=== PATIENT | female | born 1960 | race Caucasian/White ===

== ENCOUNTER 2017-10-07 17:00 | Inpatient (IN) | payer MEDICARE, OTHER ==
[2017-10-07 17:33] LABS: ADD MAN DIFF? NO
[2017-10-07 17:40] LABS: ABNORMAL IP MESSAGE 1; BASOPHIL # 0.1 10^3/ul (0.0-0.1); BASOPHILS % 0.8 % (0.0-2.0); EOSINOPHILS # 0.2 10^3/ul (0.0-0.5); HEMATOCRIT 35.8 % (37.0-47.0); HEMOGLOBIN 11.7 g/dl (12.0-16.0); LYMPHOCYTES # 1.6 10^3/ul (0.8-2.9); LYMPHOCYTES % 20.3 % (15.0-51.0); MEAN CORPUSCULAR HEMOGLOBIN 33.4 pg (29.0-33.0); MEAN CORPUSCULAR HGB CONC 32.7 g/dl (32.0-37.0); MEAN CORPUSCULAR VOLUME 102.3 fl (82.0-101.0); MEAN PLATELET VOLUME 13.2 fl (7.4-10.4); MONOCYTE # 0.8 10^3/ul (0.3-0.9); MONOCYTES % 10.1 % (0.0-11.0); NEUTROPHIL # 5.2 10^3/ul (1.6-7.5); NEUTROPHILS % 65.4 % (39.0-77.0); PLATELET COUNT 182 10^3/UL (140-415); POSITIVE DIFF @See below; RED CELL DISTRIBUTION WIDTH 14.6 % (11.5-14.5)
[2017-10-07 17:40] LABS: WHITE BLOOD COUNT 7.9 10^3/ul (4.8-10.8)
[2017-10-07 17:58] LABS: INR 0.91; PROTIME 12.3 Sec (11.9-14.9)
[2017-10-07] MEDS: ASPIRIN 81 MG TAB PO (18:00)
[2017-10-07 18:01] LABS: ANION GAP 21 (8-16); BLOOD UREA NITROGEN 40 mg/dl (7-20); CARBON DIOXIDE 29 mmol/L (21-31); CHLORIDE 102 mmol/L (97-110); CREATINE KINASE 89 IU/L (23-200); GLUCOSE 158 mg/dl (70-220); POTASSIUM 4.6 mmol/L (3.5-5.1); SODIUM 147 mmol/L (135-144)
[2017-10-07 18:18] LABS: CK INDEX 0.9; CK-MB 0.77 ng/ml (0.0-2.4)
[2017-10-07 18:21] LABS: TROPONIN-I 0.313 ng/ml (0.00-0.12)
[2017-10-07] MEDS ORDERED: ACETAMINOPHEN 325 MG TAB PO (19:30)
[2017-10-07] MEDS ORDERED: ONDANSETRON 4 MG INJ IV (19:30)
[2017-10-07 19:53] LABS: ANISOCYTOSIS 1+ (0-0); EOSINOPHILS % (M) 3 % (0-7); LYMPHOCYTES #M 1.7 10^3/ul (0.8-2.9); LYMPHOCYTES % (M) 22 % (15-51); MONOCYTE #M 0.4 10^3/ul (0.3-0.9); MONOCYTES % (M) 6 % (0-11); PLATELET MORPHOLOGY COMMENT @See below; SEGMENTED NEUTROPHILS (M) % 69 % (39-77); SMUDGE%M 4 % (0-0)
[2017-10-08] MEDS: hydrALAzine 20 MG INJ IV ×3 (00:05→00:25)
[2017-10-08] MEDS: hydrALAzine (1 MG/ML) IV SYG IV (00:16)
[2017-10-08] MEDS ORDERED: ONDANSETRON 4 MG INJ IV (02:00)
[2017-10-08] MEDS ORDERED: NACL 0.9% 3 ML SYG IV (02:00)
[2017-10-08] MEDS ORDERED: NITROGLYCERIN (SL) 0.4 MG TAB SL (02:00)
[2017-10-08 05:34] LABS: CK-MB 0.79 ng/ml (0.0-2.4)
[2017-10-08 05:37] LABS: TROPONIN-I 0.254 ng/ml (0.00-0.12)
[2017-10-08 07:58] LABS: ADD MAN DIFF? NO
[2017-10-08 08:02] LABS: WHITE BLOOD COUNT 7.9 10^3/ul (4.8-10.8)
[2017-10-08 08:02] LABS: ABNORMAL IP MESSAGE 1; BASOPHIL # 0.1 10^3/ul (0.0-0.1); BASOPHILS % 0.8 % (0.0-2.0); EOSINOPHILS # 0.3 10^3/ul (0.0-0.5); EOSINOPHILS % 3.8 % (0.0-7.0); HEMATOCRIT 33.8 % (37.0-47.0); HEMOGLOBIN 10.8 g/dl (12.0-16.0); LYMPHOCYTES # 1.9 10^3/ul (0.8-2.9); LYMPHOCYTES % 23.6 % (15.0-51.0); MEAN CORPUSCULAR HEMOGLOBIN 32.5 pg (29.0-33.0); MEAN CORPUSCULAR VOLUME 101.8 fl (82.0-101.0); MEAN PLATELET VOLUME 13.6 fl (7.4-10.4); MONOCYTE # 0.9 10^3/ul (0.3-0.9); MONOCYTES % 11.9 % (0.0-11.0); NEUTROPHIL # 4.7 10^3/ul (1.6-7.5); NEUTROPHILS % 59.6 % (39.0-77.0); PLATELET COUNT 169 10^3/UL (140-415); RED BLOOD COUNT 3.32 10^6/ul (4.20-5.40); RED CELL DISTRIBUTION WIDTH 14.6 % (11.5-14.5)
[2017-10-08 08:13] LABS: POSITIVE DIFF @See below
[2017-10-08 08:26] LABS: ALANINE AMINOTRANSFERASE 20 IU/L (13-69); ALBUMIN 3.6 g/dl (3.3-4.9); ALBUMIN/GLOBULIN RATIO 1.05; ALKALINE PHOSPHATASE 117 IU/L (42-121); ANION GAP 20 (8-16); ASPARTATE AMINO TRANSFERASE 16 IU/L (15-46); BLOOD UREA NITROGEN 45 mg/dl (7-20); CALCIUM 8.8 mg/dl (8.4-10.2); CARBON DIOXIDE 29 mmol/L (21-31); CHLORIDE 104 mmol/L (97-110); CREATINE KINASE 64 IU/L (23-200); CREATININE 8.24 mg/dl (0.44-1.00); GLUCOSE 146 mg/dl (70-220); POTASSIUM 4.5 mmol/L (3.5-5.1); SODIUM 148 mmol/L (135-144)
[2017-10-08 08:34] LABS: CK INDEX 0.8
[2017-10-08 08:35] LABS: TROPONIN-I 0.251 ng/ml (0.00-0.12)
[2017-10-08 08:39] LABS: MAGNESIUM 2.3 mg/dl (1.7-2.5)
[2017-10-08 08:42] LABS: CHOLESTEROL 92 mg/dl (100-200)
[2017-10-08 08:42] LABS: CHOL/HDL RATIO 2.8 RATIO; HDL CHOLESTEROL 32 mg/dl (37-92); LDL CHOLESTEROL,CALCULATED 26 mg/dl; TRIGLYCERIDES 168 mg/dl (0-149)
[2017-10-08] MEDS ORDERED: CLOPIDOGREL 75 MG TAB PO (09:00)
[2017-10-08] MEDS ORDERED: TICAGRELOR 90 MG TABLET PO (09:00)
[2017-10-08 09:28] LABS: HEMOGLOBIN A1C 5.9 % (0-5.9)
[2017-10-08] MEDS: FAMOTIDINE 20 MG TAB PO (09:49)
[2017-10-08] MEDS: ASPIRIN (EC) 81 MG TAB PO (09:49)
[2017-10-08] MEDS: ISOSORBIDE MONONITRATE(SR)30 MG TAB PO (09:50)
[2017-10-08] MEDS: AMLODIPINE 5 MG TAB PO (09:51)
[2017-10-08] MEDS: METOPROLOL 25 MG TAB PO ×2 (09:51→21:22)
[2017-10-08] MEDS: SEVELAMER CARBONATE 0.8 GM PKT PO ×2 (12:00→17:42)
[2017-10-08] MEDS ORDERED: GLUCAGON 1 MG INJ IM (14:30)
[2017-10-08] MEDS ORDERED: GLUCOSE GEL 15 GRAM TUBE PO ×2 (14:30)
[2017-10-08] MEDS ORDERED: GLUCOSE GEL 15 GRAM TUBE BUCCAL (14:30)
[2017-10-08] MEDS ORDERED: DEXTROSE 50% 50 ML SYRINGE IV ×2 (14:30)
[2017-10-08] MEDS: TICAGRELOR 90 MG TABLET PO ×2 (17:42→21:22)
[2017-10-08] MEDS: INSULIN ASPART [NOVOLOG] 3 ML PEN SC ×2 (17:42→21:00)
[2017-10-08] MEDS: HEPARIN 5,000 UNIT/0.5 ML VIAL SC (21:00)
[2017-10-08] MEDS: ATORVASTATIN 40 MG TAB PO (21:20)
[2017-10-08] MEDS: MONTELUKAST 10 MG TAB PO (21:20)
[2017-10-08] MEDS: GABAPENTIN 100 MG CAP PO (21:20)
[2017-10-09] MEDS: ACCU-CHEK XX (02:00)
[2017-10-09] MEDS: morphine 2 MG INJ IV (04:56)
[2017-10-09] MEDS: hydrALAzine 20 MG INJ IV (05:09)
[2017-10-09] MEDS: INSULIN ASPART [NOVOLOG] 3 ML PEN SC ×4 (08:00→21:00)
[2017-10-09] MEDS: SEVELAMER CARBONATE 0.8 GM PKT PO ×3 (08:00→18:05)
[2017-10-09] MEDS: ASPIRIN (EC) 81 MG TAB PO (09:00)
[2017-10-09] MEDS: HEPARIN 5,000 UNIT/0.5 ML VIAL SC ×2 (09:00→21:00)
[2017-10-09] MEDS: TICAGRELOR 90 MG TABLET PO ×2 (09:00→22:53)
[2017-10-09 09:46] LABS: ADD MAN DIFF? NO
[2017-10-09 09:48] LABS: ABNORMAL IP MESSAGE 1; BASOPHIL # 0.1 10^3/ul (0.0-0.1); BASOPHILS % 0.8 % (0.0-2.0); EOSINOPHILS # 0.4 10^3/ul (0.0-0.5); EOSINOPHILS % 4.5 % (0.0-7.0); HEMATOCRIT 34.7 % (37.0-47.0); HEMOGLOBIN 11.4 g/dl (12.0-16.0); LYMPHOCYTES % 25.4 % (15.0-51.0); MEAN CORPUSCULAR HEMOGLOBIN 33.2 pg (29.0-33.0); MEAN CORPUSCULAR HGB CONC 32.9 g/dl (32.0-37.0); MEAN CORPUSCULAR VOLUME 101.2 fl (82.0-101.0); MEAN PLATELET VOLUME 13.3 fl (7.4-10.4); MONOCYTES % 12.9 % (0.0-11.0); NEUTROPHIL # 4.5 10^3/ul (1.6-7.5); NEUTROPHILS % 56.1 % (39.0-77.0); PLATELET COUNT 167 10^3/UL (140-415); RED BLOOD COUNT 3.43 10^6/ul (4.20-5.40); RED CELL DISTRIBUTION WIDTH 14.6 % (11.5-14.5)
[2017-10-09 09:59] LABS: POSITIVE DIFF @See below
[2017-10-09] MEDS: ALBUMIN HUMAN 25% 100 ML IV (10:02)
[2017-10-09 10:07] LABS: ANION GAP 18 (8-16); BLOOD UREA NITROGEN 31 mg/dl (7-20); CALCIUM 8.7 mg/dl (8.4-10.2); CARBON DIOXIDE 28 mmol/L (21-31); CHLORIDE 102 mmol/L (97-110); CREATININE 5.85 mg/dl (0.44-1.00); GLUCOSE 160 mg/dl (70-220); POTASSIUM 4.4 mmol/L (3.5-5.1); SODIUM 144 mmol/L (135-144)
[2017-10-09 10:36] LABS: HEPATITIS B SURFACE ANTIGEN NEGATIVE (NEGATIVE)
[2017-10-09] MEDS: ACETAMINOPHEN 325 MG TAB PO ×2 (14:11→22:52)
[2017-10-09] MEDS: FAMOTIDINE 20 MG TAB PO (14:11)
[2017-10-09] MEDS: METOPROLOL 25 MG TAB PO ×2 (14:12→21:00)
[2017-10-09] MEDS: ISOSORBIDE MONONITRATE(SR)30 MG TAB PO (14:12)
[2017-10-09] MEDS: AMLODIPINE 5 MG TAB PO (14:13)
[2017-10-09] MEDS: MONTELUKAST 10 MG TAB PO (22:52)
[2017-10-09] MEDS: ATORVASTATIN 40 MG TAB PO (22:52)
[2017-10-09] MEDS: GABAPENTIN 100 MG CAP PO (22:52)
[2017-10-09] MEDS ORDERED: SOD CHLORIDE 0.9% 250 ML IV (23:30)
[2017-10-09] MEDS: ZOLPIDEM 5 MG TAB PO (23:56)
[2017-10-10] MEDS: SOD CHLORIDE 0.9% 1,000 ML IV (00:21)
[2017-10-10] MEDS: ACCU-CHEK XX (02:40)
[2017-10-10] MEDS: INSULIN ASPART [NOVOLOG] 3 ML PEN SC ×2 (08:00→11:42)
[2017-10-10] MEDS: ASPIRIN (EC) 81 MG TAB PO (08:53)
[2017-10-10] MEDS: HEPARIN 5,000 UNIT/0.5 ML VIAL SC ×2 (08:53→08:55)
[2017-10-10] MEDS: SEVELAMER CARBONATE 0.8 GM PKT PO ×3 (08:53→11:41)
[2017-10-10] MEDS: METOPROLOL 25 MG TAB PO (08:54)
[2017-10-10] MEDS: TICAGRELOR 90 MG TABLET PO (08:54)
[2017-10-10] MEDS: ISOSORBIDE MONONITRATE(SR)30 MG TAB PO (08:55)
[2017-10-10] MEDS: FAMOTIDINE 20 MG TAB PO (08:55)
[2017-10-10] MEDS: AMLODIPINE 5 MG TAB PO (08:55)
== END 2017-10-10 15:00 | disposition home or self-care (01) | DRG 280 ==
LOC: MS4 19:14 → E/R 17:00
PROC: 5A1D70Z Performance of Urinary Filtration, Intermittent, Less than 6 Hours Per Day (ICD-10-PCS; principal; 2017-10-08)
DX: I21.A1 Myocardial infarction type 2 (principal); N18.6 End stage renal disease; I50.33 Acute on chronic diastolic (congestive) heart failure; J81.0 Acute pulmonary edema; I13.2 Hypertensive heart and chronic kidney disease with heart failure and with stage 5 chronic kidney disease, or end stage renal disease; E87.0 Hyperosmolality and hypernatremia; E11.22 Type 2 diabetes mellitus with diabetic chronic kidney disease; Z99.2 Dependence on renal dialysis; Z95.5 Presence of coronary angioplasty implant and graft; Z87.891 Personal history of nicotine dependence; Z86.73 Personal history of transient ischemic attack (TIA), and cerebral infarction without residual deficits; I25.2 Old myocardial infarction
CPT/HCPCS: 36415; 71045; 80048; 80053; 80061; 82550; 82553; 82962; 83036; 83735; 84443; 84484; 85025; 85610; 87340; 90935; 93005; 93306; 96374; 99285-25

== ENCOUNTER 2018-02-23 12:49 | Inpatient (IN) | payer MEDICARE, OTHER ==
[2018-02-23 13:27] LABS: ADD MAN DIFF? NO
[2018-02-23 13:35] LABS: WHITE BLOOD COUNT 6.2 10^3/ul (4.8-10.8)
[2018-02-23 13:35] LABS: ABNORMAL IP MESSAGE 1; BASOPHILS % 0.2 % (0.0-2.0); HEMATOCRIT 38.7 % (37.0-47.0); HEMOGLOBIN 12.9 g/dl (12.0-16.0); LYMPHOCYTES # 0.4 10^3/ul (0.8-2.9); MEAN CORPUSCULAR HEMOGLOBIN 34.2 pg (29.0-33.0); MEAN CORPUSCULAR HGB CONC 33.3 g/dl (32.0-37.0); MEAN CORPUSCULAR VOLUME 102.7 fl (82.0-101.0); MEAN PLATELET VOLUME 13.1 fl (7.4-10.4); MONOCYTE # 0.1 10^3/ul (0.3-0.9); MONOCYTES % 1.6 % (0.0-11.0); NEUTROPHIL # 5.6 10^3/ul (1.6-7.5); NEUTROPHILS % 90.7 % (39.0-77.0); NUCLEATED RED BLOOD CELLS% 0.3 /100WBC (0.0-0.0); PLATELET COUNT 166 10^3/UL (140-415); RED BLOOD COUNT 3.77 10^6/ul (4.20-5.40); RED CELL DISTRIBUTION WIDTH 17.1 % (11.5-14.5)
[2018-02-23 13:39] LABS: POSITIVE DIFF @See below
[2018-02-23 13:52] LABS: ANION GAP 20 (8-16); BLOOD UREA NITROGEN 34 mg/dl (7-20); CALCIUM 9.5 mg/dl (8.4-10.2); CARBON DIOXIDE 23 mmol/L (21-31); CHLORIDE 102 mmol/L (97-110); CREATININE 7.42 mg/dl (0.44-1.00); GLUCOSE 271 mg/dl (70-220); PHOSPHORUS 5.3 mg/dl (2.5-4.9); POTASSIUM 4.6 mmol/L (3.5-5.1); SODIUM 140 mmol/L (135-144)
[2018-02-23 13:55] LABS: INR 1.14; PROTIME 14.8 Sec (11.9-14.9); PT RATIO 1.2
[2018-02-23 13:56] LABS: PARTIAL THROMBOPLASTIN TIME 24.4 Sec (25.0-35.0)
[2018-02-23] MEDS ORDERED: SODIUM CHLORIDE 0.9% 1L BAG IV (14:00)
[2018-02-23] MEDS ORDERED: ALBUMIN HUMAN 25% 100 ML IV (14:00)
[2018-02-23] MEDS ORDERED: HEPARIN 1000 UNITS/ML 10 ML INJ CATHETER (14:00)
[2018-02-23 14:05] LABS: TROPONIN-I 0.125 ng/ml (0.000-0.120)
[2018-02-23] MEDS: NIFEdipine (XL) 30 MG TAB PO (14:21)
[2018-02-23] MEDS ORDERED: hydrALAzine 20 MG INJ IV (14:30)
[2018-02-23] MEDS ORDERED: NACL 0.9% 3 ML SYG IV (16:00)
[2018-02-23] MEDS ORDERED: NITROGLYCERIN (SL) 0.4 MG TAB SL (16:00)
[2018-02-23] MEDS ORDERED: ONDANSETRON 4 MG INJ IV (16:00)
[2018-02-23] MEDS ORDERED: morphine 2 MG INJ IV (16:00)
[2018-02-23] MEDS ORDERED: GLUCOSE GEL 15 GRAM TUBE PO ×2 (16:30)
[2018-02-23] MEDS ORDERED: GLUCOSE GEL 15 GRAM TUBE BUCCAL (16:30)
[2018-02-23] MEDS ORDERED: DEXTROSE 50% 50 ML SYRINGE IV ×2 (16:30)
[2018-02-23] MEDS ORDERED: GLUCAGON 1 MG INJ IM (16:30)
[2018-02-23 16:39] LABS: HEPATITIS B SURFACE ANTIGEN NEGATIVE (NEGATIVE)
[2018-02-23 16:57] LABS: HEPATITIS B SURFACE ANTIBODY POSITIVE (NEGATIVE)
[2018-02-23 16:57] LABS: HEMOGLOBIN A1C 5.3 % (0-5.9)
[2018-02-23 17:24] LABS: FREE T4 (FREE THYROXINE) 2.12 ng/dl (0.64-1.79)
[2018-02-23] MEDS: ASPIRIN 81 MG TAB PO ×2 (17:30→17:39)
[2018-02-23] MEDS: INSULIN ASPART [NOVOLOG] 3 ML PEN SC ×2 (17:40→21:00)
[2018-02-23 18:12] LABS: CREATINE KINASE 103 IU/L (23-200)
[2018-02-23 18:25] LABS: CK-MB 1.04 ng/ml (0.0-2.4)
[2018-02-23] MEDS: SEVELAMER CARBONATE 0.8 GM PKT PO (18:35)
[2018-02-23 18:57] LABS: TROPONIN-I 0.134 ng/ml (0.000-0.120)
[2018-02-23] MEDS: INSULIN GLARGINE [LANTus] (100 UNITS/ML) SYG SC (20:00)
[2018-02-23] MEDS ORDERED: TICAGRELOR 90 MG TABLET PO (21:00)
[2018-02-23] MEDS: MONTELUKAST 10 MG TAB PO (22:18)
[2018-02-23] MEDS: GABAPENTIN 100 MG CAP PO (22:18)
[2018-02-23] MEDS: FAMOTIDINE 20 MG TAB PO (22:18)
[2018-02-23] MEDS: ATORVASTATIN 40 MG TAB PO (22:18)
[2018-02-23] MEDS: HEPARIN 5,000 UNIT/0.5 ML VIAL SC (22:21)
[2018-02-23] MEDS: METOPROLOL 25 MG TAB PO (22:24)
[2018-02-24] MEDS: ZOLPIDEM 5 MG TAB PO (00:17)
[2018-02-24] MEDS: HEPARIN 5,000 UNIT/0.5 ML VIAL SC ×3 (06:02→21:36)
[2018-02-24 07:24] LABS: ADD MAN DIFF? NO
[2018-02-24 07:29] LABS: WHITE BLOOD COUNT 9.1 10^3/ul (4.8-10.8)
[2018-02-24 07:29] LABS: ABNORMAL IP MESSAGE 1; BASOPHILS % 0.1 % (0.0-2.0); HEMATOCRIT 38.5 % (37.0-47.0); HEMOGLOBIN 12.9 g/dl (12.0-16.0); LYMPHOCYTES # 0.4 10^3/ul (0.8-2.9); LYMPHOCYTES % 4.6 % (15.0-51.0); MEAN CORPUSCULAR HEMOGLOBIN 34.5 pg (29.0-33.0); MEAN CORPUSCULAR HGB CONC 33.5 g/dl (32.0-37.0); MEAN CORPUSCULAR VOLUME 102.9 fl (82.0-101.0); MEAN PLATELET VOLUME 12.8 fl (7.4-10.4); MONOCYTE # 0.4 10^3/ul (0.3-0.9); MONOCYTES % 4.6 % (0.0-11.0); NEUTROPHIL # 8.2 10^3/ul (1.6-7.5); NEUTROPHILS % 90.3 % (39.0-77.0); NUCLEATED RED BLOOD CELLS% 0.2 /100WBC (0.0-0.0); PLATELET COUNT 203 10^3/UL (140-415); RED BLOOD COUNT 3.74 10^6/ul (4.20-5.40); RED CELL DISTRIBUTION WIDTH 17.2 % (11.5-14.5)
[2018-02-24 07:38] LABS: POSITIVE DIFF @See below
[2018-02-24 07:43] LABS: CREATINE KINASE 60 IU/L (23-200)
[2018-02-24 07:52] LABS: PHOSPHORUS 5.2 mg/dl (2.5-4.9)
[2018-02-24 07:52] LABS: CHOL/HDL RATIO 2.4 RATIO; CHOLESTEROL 76 mg/dl (100-200); HDL CHOLESTEROL 31 mg/dl (37-92); LDL CHOLESTEROL,CALCULATED 20 mg/dl; TRIGLYCERIDES 123 mg/dl (0-149)
[2018-02-24 07:55] LABS: CK INDEX 1.6; CK-MB 0.93 ng/ml (0.0-2.4)
[2018-02-24 07:57] LABS: TROPONIN-I 0.123 ng/ml (0.000-0.120)
[2018-02-24 08:24] LABS: ALANINE AMINOTRANSFERASE 18 IU/L (13-69); ALBUMIN/GLOBULIN RATIO 1.21; ALKALINE PHOSPHATASE 114 IU/L (42-121); ANION GAP 21 (8-16); ASPARTATE AMINO TRANSFERASE 30 IU/L (15-46); BILIRUBIN,INDIRECT 0.3 mg/dl (0-1.1); BILIRUBIN,TOTAL 0.4 mg/dl (0.2-1.3); BLOOD UREA NITROGEN 25 mg/dl (7-20); CALCIUM 9.3 mg/dl (8.4-10.2); CARBON DIOXIDE 25 mmol/L (21-31); CHLORIDE 99 mmol/L (97-110); CREATININE 5.66 mg/dl (0.44-1.00); GLUCOSE 200 mg/dl (70-220); POTASSIUM 4.2 mmol/L (3.5-5.1); SODIUM 141 mmol/L (135-144); TOTAL PROTEIN 7.3 g/dl (6.1-8.1)
[2018-02-24] MEDS: LOSARTAN 50 MG TAB PO (09:00)
[2018-02-24] MEDS: ISOSORBIDE MONONITRATE(SR)30 MG TAB PO (09:00)
[2018-02-24] MEDS: METOPROLOL 25 MG TAB PO ×2 (09:00→21:29)
[2018-02-24] MEDS: AMLODIPINE 5 MG TAB PO (09:00)
[2018-02-24] MEDS: CLOPIDOGREL 75 MG TAB PO (09:22)
[2018-02-24] MEDS: SEVELAMER CARBONATE 0.8 GM PKT PO ×4 (09:23→17:29)
[2018-02-24] MEDS: DIPHENHYDRAMINE 50 MG INJ IV (11:06)
[2018-02-24] MEDS: HYDROCODONE/APAP (5/325) TAB PO (12:30)
[2018-02-24] MEDS ORDERED: LORATADINE 10 MG TAB PO (16:00)
[2018-02-24] MEDS: hydrOXYzine HCL 10 MG TAB PO ×2 (17:26→21:28)
[2018-02-24] MEDS: GABAPENTIN 100 MG CAP PO (21:27)
[2018-02-24] MEDS: ATORVASTATIN 40 MG TAB PO (21:28)
[2018-02-24] MEDS: FAMOTIDINE 20 MG TAB PO (21:28)
[2018-02-24] MEDS: MONTELUKAST 10 MG TAB PO (21:28)
[2018-02-25] MEDS: HEPARIN 5,000 UNIT/0.5 ML VIAL SC ×2 (06:47→14:10)
[2018-02-25] MEDS: SEVELAMER CARBONATE 0.8 GM PKT PO ×3 (08:20→17:49)
[2018-02-25] MEDS: LOSARTAN 50 MG TAB PO (08:21)
[2018-02-25] MEDS: METOPROLOL 25 MG TAB PO (08:22)
[2018-02-25] MEDS: AMLODIPINE 5 MG TAB PO (08:22)
[2018-02-25] MEDS: CLOPIDOGREL 75 MG TAB PO (08:22)
[2018-02-25] MEDS: hydrOXYzine HCL 10 MG TAB PO ×2 (08:23→12:27)
[2018-02-25] MEDS: ISOSORBIDE MONONITRATE(SR)30 MG TAB PO (08:23)
[2018-02-25 08:32] LABS: ADD MAN DIFF? NO
[2018-02-25 08:37] LABS: WHITE BLOOD COUNT 8.5 10^3/ul (4.8-10.8)
[2018-02-25 08:37] LABS: ABNORMAL IP MESSAGE 1; BASOPHILS % 0.2 % (0.0-2.0); HEMATOCRIT 39.8 % (37.0-47.0); HEMOGLOBIN 13.3 g/dl (12.0-16.0); LYMPHOCYTES # 1.3 10^3/ul (0.8-2.9); LYMPHOCYTES % 14.7 % (15.0-51.0); MEAN CORPUSCULAR HGB CONC 33.4 g/dl (32.0-37.0); MEAN CORPUSCULAR VOLUME 101.8 fl (82.0-101.0); MEAN PLATELET VOLUME 13.1 fl (7.4-10.4); MONOCYTE # 1.3 10^3/ul (0.3-0.9); MONOCYTES % 15.1 % (0.0-11.0); NEUTROPHIL # 5.9 10^3/ul (1.6-7.5); NEUTROPHILS % 69.6 % (39.0-77.0); NUCLEATED RED BLOOD CELLS% 0.2 /100WBC (0.0-0.0); PLATELET COUNT 220 10^3/UL (140-415); RED BLOOD COUNT 3.91 10^6/ul (4.20-5.40); RED CELL DISTRIBUTION WIDTH 17.2 % (11.5-14.5)
[2018-02-25 08:44] LABS: POSITIVE DIFF @See below
[2018-02-25 09:00] LABS: PHOSPHORUS 3.9 mg/dl (2.5-4.9)
[2018-02-25 09:00] LABS: MAGNESIUM 1.9 mg/dl (1.7-2.5)
[2018-02-25 09:10] LABS: ALANINE AMINOTRANSFERASE 28 IU/L (13-69); ALBUMIN 3.5 g/dl (3.3-4.9); ALBUMIN/GLOBULIN RATIO 1.12; ALKALINE PHOSPHATASE 148 IU/L (42-121); ANION GAP 18 (8-16); ASPARTATE AMINO TRANSFERASE 46 IU/L (15-46); BILIRUBIN,INDIRECT 0.2 mg/dl (0-1.1); BILIRUBIN,TOTAL 0.3 mg/dl (0.2-1.3); BLOOD UREA NITROGEN 32 mg/dl (7-20); CALCIUM 8.7 mg/dl (8.4-10.2); CARBON DIOXIDE 26 mmol/L (21-31); CHLORIDE 96 mmol/L (97-110); CREATININE 4.88 mg/dl (0.44-1.00); GLUCOSE 171 mg/dl (70-220); POTASSIUM 3.2 mmol/L (3.5-5.1); SODIUM 137 mmol/L (135-144); TOTAL PROTEIN 6.6 g/dl (6.1-8.1)
[2018-02-25 09:11] LABS: TROPONIN-I 0.115 ng/ml (0.000-0.120)
[2018-02-25] MEDS: POTASSIUM CHLORIDE 100 ML IVPB (12:27)
[2018-02-25] MEDS: ACETAMINOPHEN 325 MG TAB PO (13:58)
[2018-02-25] MEDS: ASPIRIN 81 MG TAB PO (17:25)
== END 2018-02-25 19:20 | disposition home or self-care (01) | DRG 280 ==
LOC: E/R 12:49 → TEL 14:21
PROC: 5A1D70Z Performance of Urinary Filtration, Intermittent, Less than 6 Hours Per Day (ICD-10-PCS; principal; 2018-02-23)
PROC: 5A1D70Z Performance of Urinary Filtration, Intermittent, Less than 6 Hours Per Day (ICD-10-PCS; 2018-02-25)
DX: I13.2 Hypertensive heart and chronic kidney disease with heart failure and with stage 5 chronic kidney disease, or end stage renal disease (principal); N18.6 End stage renal disease; I21.A1 Myocardial infarction type 2; I50.33 Acute on chronic diastolic (congestive) heart failure; J96.01 Acute respiratory failure with hypoxia; E11.22 Type 2 diabetes mellitus with diabetic chronic kidney disease; E66.01 Morbid (severe) obesity due to excess calories; I25.10 Atherosclerotic heart disease of native coronary artery without angina pectoris; E78.5 Hyperlipidemia, unspecified; F17.200 Nicotine dependence, unspecified, uncomplicated; R21 Rash and other nonspecific skin eruption; Z68.37 Body mass index [BMI] 37.0-37.9, adult; Z99.2 Dependence on renal dialysis; Z91.15 Patient's noncompliance with renal dialysis; Z95.5 Presence of coronary angioplasty implant and graft; Z79.4 Long term (current) use of insulin
CPT/HCPCS: 71045; 80048; 80053; 80061; 82550; 82553; 82962; 83036; 83735; 84100; 84439; 84443; 84484; 85025; 85610; 85730; 86706; 87340; 90935; 93005; 99291-25